=== PATIENT | male | born 1975 | race Hispanic/Latino ===

== ENCOUNTER 2018-05-09 10:13 | Emergency (ER) | payer SELFPAY ==
--- NOTE | 2018-05-09 10:57 | ER ---
Nurse's Notes [facility] Name: Amaury Wayne Age: 42 yrs Sex: Male : 1975 Arrival Date: 05/09/2018 Time: 10:16 Bed 12 Private MD: None, None Diagnosis: Cellulitis of right lower limb Presentation: 05/09 10:19 Presenting complaint: Patient states: i got an insect bite last Thursday at my R leg, it hj could be from a spider, reports fever; went to a doctor and they gave me a shot, and Rx of ibuprofen, metronidazole and hydroxyzine; i feel its not helping;. Transition of care: patient was not received from another setting of care. Onset of symptoms was May 09, 2018. Risk Assessment: Do you want to hurt yourself or someone else? Patient reports no desire to harm self or others. Initial Sepsis Screen: Does the patient meet any 2 criteria? No. Patient's initial sepsis screen is negative. Does the patient have a suspected source of infection? No. Patient's initial sepsis screen is negative. Care prior to arrival: None. 10:19 Method Of Arrival: Ambulatory 10:19 Acuity: DILIA 4 hj Triage Assessment: 10:22 Bite description: bite sustained to right leg by a spider, animal information: Appearance: vaccination(s) is not applicable. General: Appears in no apparent distress. uncomfortable, Behavior is calm, cooperative, appropriate for age. Pain: Denies pain. Historical: - Allergies: 10:22 No Known Allergies; hj - Home Meds: 10:22 None [Active]; hj - PMHx: 10:22 None; hj - PSHx: 10:22 None; hj - Immunization history:: Adult Immunizations up to date. - Social history:: Smoking status: Patient/guardian denies using tobacco, Patient/guardian denies using alcohol. - Ebola Screening: : Patient negative for fever greater than or equal to 101.5 degrees Fahrenheit, and additional compatible Ebola Virus Disease symptoms Patient denies exposure to infectious person Patient denies travel to an Ebola-affected area in the 21 days before illness onset. Screenin:23 Abuse screen: Denies threats or abuse. Denies injuries from another. Nutritional hj screening: No deficits noted. Tuberculosis screening: No symptoms or risk factors identified. Fall Risk None identified. Assessment: 10:23 Derm: Skin Skin is. hj 10:45 General: Appears in no apparent distress. comfortable, Behavior is calm, cooperative, ss Denies fever, feeling ill, fatigue, chills. Pain: Complains of pain in lateral aspect of right thigh. Pain: Pain currently is 0 out of 10 on a pain scale. Quality of pain is described as burning, tender. Neuro: Level of Consciousness is awake, alert, obeys commands, Oriented to person, place, time, situation. Respiratory: Airway is patent Respiratory effort is even, unlabored, Respiratory pattern is regular, symmetrical. Derm: Rash noted that is vesicular, on lateral aspect of right thigh. Musculoskeletal: Circulation, motion, and sensation intact. Range of motion: intact in all extremities, Swelling absent. Vital Signs: 10:24 BP 131 / 76; Pulse 73; Resp 18; Temp 98.1(O); Pulse Ox 100% on R/A; Weight 95.71 kg; hj Height 5 ft. 6 in. (167.64 cm); Pain 0/10; 10:24 Body Mass Index 34.06 (95.71 kg, 167.64 cm) ED Course: 10:16 Patient arrived in ED. mr 10:16 None, None is Private Physician. mr 10:22 Triage completed. hj 10:22 Elizabeth Jara FNP-C is [facility]. kb 10:22 Akash Camacho MD is Attending Physician. kb 10:23 Arm band placed on right wrist. hj 10:24 Patient has correct armband on for positive identification. Bed in low position. Call light in reach. Side rails up X 1. 10:35 Sofya Nath, SARTHAK is Primary Nurse. ss 10:57 Phani Miranda MD is Referral Physician. kb 11:08 No provider procedures requiring assistance completed. Patient did not have IV access ss during this emergency room visit. Wound care: to vesicular rash to R thigh was cleaned with Hibiclens, dressed with non adherent pad with kerlix. Administered Medications: 10:54 Drug: Doxycycline 200 mg Route: PO; ss 11:09 Follow up: Response: Medication administered at discharge. ss 10:54 Drug: Bactrim (160 mg-800 mg (DS) 1 tablet Route: PO; ss 11:09 Follow up: Response: Medication administered at discharge. 10:54 Drug: Bactroban Ointment 2 % 1 application Route: Topical; Site: affected area; Outcome: 10:57 Discharge ordered by . kb 11:08 Discharged to home ambulatory, with family. ss 11:08 Condition: good 11:08 Discharge instructions given to patient, family, Instructed on discharge instructions, follow up and referral plans. medication usage, wound care, Demonstrated understanding of instructions, follow-up care, medications, wound care, Prescriptions given X 3. 11:11 Patient left the ED. Signatures: Elizabeth Jara, DOMESTIC TECHNICIAN-C DOMESTIC TECHNICIAN-Jadyn Austin mr Sofya Nath, RN RN Richmond Montiel, RN RN hj Corrections: (The following items were deleted from the chart) 10:26 10:24 Pulse 73bpm; Resp 18bpm; Pulse Ox 100% RA; Temp 98.1F Oral; 95.71 kg; Height 5 hj ft. 6 in.; BMI: 34.0; Pain 0/10; hj
--- NOTE | 2018-05-09 10:57 | EDPHYS ---
Physician Documentation [facility] Name: Amaury Wayne Age: 42 yrs Sex: Male : 1975 Arrival Date: 05/09/2018 Time: 10:16 Bed 12 Private MD: None, None ED Physician Akash Camacho HPI: 05/09 10:52 This 42 yrs old Male presents to ER via Ambulatory with complaints of Insect kb Bite. 10:54 The patient presents with cellulitis of the lateral aspect of right thigh. Description: kb erythematous, swollen, warm. Onset: The symptoms/episode began/occurred 10 day(s) ago. Possible cause(s): spider bite. Associated signs and symptoms: Pertinent positives: erythema, swelling, blistering. Modifying factors: the symptoms are alleviated by nothing, the symptoms are aggravated by nothing. Severity of symptoms: At their worst the symptoms were moderate, in the emergency department the symptoms are unchanged. The patient has not experienced similar symptoms in the past. The patient has been recently seen by a physician: at a clinic, in [facility] , 4 day(s) ago, with similar presenting complaints, given prescriptions for flagyl, hydroxyzine, and ibuprofen. Historical: - Allergies: 10:22 No Known Allergies; hj - Home Meds: 10:22 None [Active]; hj - PMHx: 10:22 None; hj - PSHx: 10:22 None; hj - Immunization history:: Adult Immunizations up to date. - Social history:: Smoking status: Patient/guardian denies using tobacco, Patient/guardian denies using alcohol. - Ebola Screening: : Patient negative for fever greater than or equal to 101.5 degrees Fahrenheit, and additional compatible Ebola Virus Disease symptoms Patient denies exposure to infectious person Patient denies travel to an Ebola-affected area in the 21 days before illness onset. ROS: 10:48 Constitutional: Negative for fever, chills, and weight loss, Cardiovascular: Negative kb for chest pain, palpitations, and edema, Respiratory: Negative for shortness of breath, cough, wheezing, and pleuritic chest pain, Abdomen/GI: Negative for abdominal pain, nausea, vomiting, diarrhea, and constipation, MS/Extremity: Negative for injury and deformity, Neuro: Negative for headache, weakness, numbness, tingling, and seizure. 10:48 Skin: Positive for cellulitis, of the lateral aspect of right thigh. Exam: 10:48 Constitutional: This is a well developed, well nourished patient who is awake, alert, kb and in no acute distress. Head/Face: Normocephalic, atraumatic. Chest/axilla: Normal chest wall appearance and motion. Nontender with no deformity. No lesions are appreciated. Cardiovascular: Regular rate and rhythm with a normal S1 and S2. No gallops, murmurs, or rubs. Normal PMI, no JVD. No pulse deficits. Respiratory: Lungs have equal breath sounds bilaterally, clear to auscultation and percussion. No rales, rhonchi or wheezes noted. No increased work of breathing, no retractions or nasal flaring. Abdomen/GI: Soft, non-tender, with normal bowel sounds. No distension or tympany. No guarding or rebound. No evidence of tenderness throughout. Back: No spinal tenderness. No costovertebral tenderness. Full range of motion. MS/ Extremity: Pulses equal, no cyanosis. Neurovascular intact. Full, normal range of motion. Neuro: Awake and alert, GCS 15, oriented to person, place, time, and situation. Cranial nerves II-XII grossly intact. Motor strength 5/5 in all extremities. Sensory grossly intact. Cerebellar exam normal. Normal gait. 10:48 Skin: cellulitis, that is moderate, on the lateral aspect of right thigh, approximate size of softball, blistering noted around edges. No area of fluctuance noted. . Vital Signs: 10:24 BP 131 / 76; Pulse 73; Resp 18; Temp 98.1(O); Pulse Ox 100% on R/A; Weight 95.71 kg; hj Height 5 ft. 6 in. (167.64 cm); Pain 0/10; 10:24 Body Mass Index 34.06 (95.71 kg, 167.64 cm) MDM: 10:27 Patient medically screened. [facility] 10:51 Data reviewed: vital signs, nurses notes. Data interpreted: Pulse oximetry: on room air kb is 100 %. Interpretation: normal. Counseling: I had a detailed discussion with the patient and/or guardian regarding: the historical points, exam findings, and any diagnostic results supporting the discharge/admit diagnosis, the need for outpatient follow up, a family practitioner, to return to the emergency department if symptoms worsen or persist or if there are any questions or concerns that arise at home. 10:55 ED course: Pt educated to stop flagyl. Will start bactrim and doxycycline, as well as, kb bactroban ointment. . 05/09 10:47 Order name: Wound Care; Complete Time: 10:55 kb Administered Medications: 10:54 Drug: Doxycycline 200 mg Route: PO; ss 11:09 Follow up: Response: Medication administered at discharge. ss 10:54 Drug: Bactrim (160 mg-800 mg (DS) 1 tablet Route: PO; ss 11:09 Follow up: Response: Medication administered at discharge. ss 10:54 Drug: Bactroban Ointment 2 % 1 application Route: Topical; Site: affected area; ss Disposition: 05/10 10:16 Co-signature as Attending Physician, Akash Camacho MD I agree with the assessment and ashly plan of care. Disposition: 05/09/18 10:57 Discharged to Home. Impression: Cellulitis of right lower limb. - Condition is Stable. - Discharge Instructions: Cellulitis, Adult, [id number]. - Prescriptions for Doxycycline Hyclate 100 mg Oral Tablet - take 1 tablet by ORAL route every 12 hours; 20 tablet. Bactrim DS 800- 160 mg Oral Tablet - take 1 tablet by ORAL route every 12 hours for 10 days; 20 tablet. - Work release form, Medication Reconciliation Form, Thank You Letter, Antibiotic Education, Prescription Opioid Use form. - Follow up: Emergency Department; When: As needed; Reason: Worsening of condition. Follow up: Phani Miranda MD; When: 1 - 2 days; Reason: Recheck today's complaints. Signatures: Elizabeth Jara, CUSTOMS ENTRY CLERK-C CUSTOMS ENTRY CLERK-Dashawnb Akash Camacho MD MD cha Smirch, Shelby, RN RN Richmond Sheth RN RN Corrections: (The following items were deleted from the chart) 05/09 11:11 10:57 05/09/2018 10:57 Discharged to Home. Impression: Cellulitis of right lower limb. ss Condition is Stable. Forms are Medication Reconciliation Form, Thank You Letter, Antibiotic Education, Prescription Opioid Use. Follow up: Emergency Department; When: As needed; Reason: Worsening of condition. Follow up: Phani Miranda; When: 1 - 2 days; Reason: Recheck today's complaints. kb
[2018-05-09] MEDS ORDERED: DOXYCYCLINE 100 MG CAP PO ONE (11:00)
[2018-05-09] MEDS ORDERED: SMZ./TMP. 800/160 MG TABLET ONE (11:00)
[2018-05-09] MEDS ORDERED: MUPIROCIN 2% OINT 22GM TUBE TOP ONE (11:05)
== END 2018-05-09 11:11 | disposition home or self-care (01) ==
LOC: ER 10:13 → EDSEX 10:13 → ER 11:11
DX: L03.115 Cellulitis of right lower limb (principal)
CPT/HCPCS: 99283